=== PATIENT | female | born 1970 | race Caucasian/White ===

== ENCOUNTER 2021-01-26 14:02 | Emergency (ER) | payer MEDICAID ==
[~2021-01-26] VITALS: Ht 157.5 cm; Wt 77.3 kg
[2021-01-26] MEDS ORDERED: DICLOFENAC SODIUM 1% 100 GM GEL [4GM] TP ONE (14:45)
[2021-01-26 16:06] VITALS: BP 140/68
== END 2021-01-26 16:44 | disposition home or self-care (01) ==
LOC: EMS 14:08
DX: M25.562 Pain in left knee (principal)
CPT/HCPCS: 99283